=== PATIENT | female | born 1950 | race Caucasian/White ===

== ENCOUNTER → 2019-04-27 07:39 | Outpatient (CLI) | payer MEDICARE, OTHER, SELFPAY ==
[2019-04-27 08:35] LABS: Alanine Aminotransferase 21 IU/L (9-52); Albumin 4.2 g/dL (3.5-5.0); Albumin Globulin Ratio 1.3 (1.0-2.8); Alkaline Phosphatase 66 U/L (38-126); Aspartate Aminotransferase 25 IU/L (14-36); BUN Creatinine Ratio 18.8 (6-22); Bilirubin Total 0.6 mg/dL (0.2-1.3); Blood Urea Nitrogen 15 mg/dL (7-17); Carbon Dioxide 28 mmol/L (22-32); Chloride 105 mmol/L (98-107); Cholesterol 243 mg/dL (140-199); Estimated Glomerular Filt Rate > 60.0 mL/min (>60); Globulin 3.3 g/dL (1.7-4.1); Glucose 101 mg/dL (80-110); HDL Cholesterol 68 mg/dL (40-60); HEMOLYSIS 16 (0-50); LDL Cholesterol Calculated 136 mg/dL (<100); Potassium 4.4 mmol/L (3.4-5.1); Sodium 139 mmol/L (137-145); Total Protein 7.5 g/dL (6.3-8.2); Triglycerides 195 mg/dL (35-150)
[2019-04-27 08:56] LABS: Free T4, Direct Thyroxine 1.26 ng/dL (0.78-2.19)
[2019-04-27 09:10] LABS: Thyroid Stimulating Hormone 2.42 uIU/mL (0.47-4.68)
== END ==
PROVIDERS: PCP Internal Medicine; Visit Provider Internal Medicine
DX: Z13.6 Encounter for screening for cardiovascular disorders (principal); E03.9 Hypothyroidism, unspecified; I10 Essential (primary) hypertension
CPT/HCPCS: 36415; 80053; 80061; 84439; 84443

== ENCOUNTER → 2019-05-08 10:33 | Outpatient (CLI) | payer MEDICARE, OTHER, SELFPAY ==
--- NOTE | 2019-05-08 10:34 | DI.RAD.S_ITS ---
PROCEDURE: FL BARIUM SWALLOW INDICATIONS: dysphagia COMPARISON: None. FINDINGS: Function: There is decreased esophageal peristalsis. Spontaneous gastroesophageal reflux. Morphology: Air-contrast images demonstrate diffuse mucosal irregularity and feline appearance, presumably reflux related. Single contrast views show no esophageal strictures, extrinsic mass effects, or diverticula. Limited images of the stomach demonstrate normal appearance. IMPRESSION: Severe esophageal dysmotility. Spontaneous gastro-esophageal reflux to the lower third of the esophagus. Dictated by: Arturo Fox M.D. on 05/08/2019 at 11:13 Approved by: Arturo Fox M.D. on 05/08/2019 at 11:15
== END ==
PROVIDERS: PCP Internal Medicine; Visit Provider Internal Medicine
DX: R13.10 Dysphagia, unspecified (principal); K21.9 Gastro-esophageal reflux disease without esophagitis; K22.4 Dyskinesia of esophagus
CPT/HCPCS: 74220

== ENCOUNTER → 2019-05-26 12:29 | Outpatient (CLI) | payer MEDICARE, OTHER, SELFPAY ==
--- NOTE | 2019-05-26 | DI.MRI.S_ITS ---
PROCEDURE: MR SHOULDER RT WO CON INDICATIONS: Calcific tendinitis of right shoulder TECHNIQUE: Noncontrast oblique coronal T2 fast spin echo with fat saturation, oblique sagittal T1 spin echo and T2 fast spin echo with fat saturation, axial T1 spin echo and T2 fast spin echo with fat saturation through the shoulder. COMPARISON: None. FINDINGS: Image quality: Diagnostic. Rotator cuff: No definite full-thickness tear of the rotator cuff is evident. There are globular areas of decreased signal intensity identified on all imaging sequences along the distal margin of the supraspinatus tendon. This does result in difficulty evaluating the tendon insertion for subtle abnormalities. There is thickening and increased signal involving the supraspinatus tendon with probable areas of low grade bursal surface partial thickness tearing. The infraspinatus tendon demonstrates mild tendinopathy. The subscapularis and teres minor tendons are within normal limits. There is no significant atrophy of the rotator cuff muscles. Bones and bursae: No acute fracture or suspicious osseous lesion is identified. There mild degenerative changes of the glenohumeral joint. Moderate degenerative changes of the acromioclavicular joint are present. No significant glenohumeral joint effusion is identified. There is a small to moderate amount of fluid contained within the subacromial subdeltoid bursa. Capsule and soft tissues: Evaluation of the labrum and the glenohumeral ligaments is suboptimal without intra-articular contrast. No definite large labral tears are evident. There is slight increased signal along the labral cartilaginous junction of the posterosuperior labrum without a discrete tear evident. No acute injuries are suspected involving the glenohumeral ligaments. The long head of the biceps tendon is not well-seen on this examination, but appears to be intact. IMPRESSION: 1. There is at least low-grade partial-thickness tearing and moderate tendinopathy of the distal supraspinatus tendon with corresponding calcific tendinitis. Please note that in the setting of calcific tendinitis, the degree of partial thickness tearing may be underestimated on MRI. 2. Mild infraspinatus tendinopathy. 3. Mild to moderate degenerative changes of the shoulder joints as described. 4. Questionable small posterosuperior labral tear. Dictated by: Tristin Berman M.D. on 05/26/2019 at 13:30 Approved by: Tristin Berman M.D. on 05/26/2019 at 13:33
== END ==
PROVIDERS: PCP Internal Medicine; Visit Provider Orthopaedic Surgery
DX: M75.31 Calcific tendinitis of right shoulder (principal); M75.111 Incomplete rotator cuff tear or rupture of right shoulder, not specified as traumatic
CPT/HCPCS: 73221

== ENCOUNTER → 2019-09-15 08:09 | Outpatient (CLI) | payer MEDICARE, OTHER, SELFPAY | PROVIDERS: PCP Internal Medicine; Referring Provider Internal Medicine; Visit Provider Internal Medicine | DX: K52.1 Toxic gastroenteritis and colitis (principal); R19.7 Diarrhea, unspecified; T36.95XA Adverse effect of unspecified systemic antibiotic, initial encounter | CPT/HCPCS: 36415; 87493 ==

== ENCOUNTER → 2019-10-27 07:58 | Outpatient (CLI) | payer MEDICARE, OTHER, SELFPAY ==
[2019-10-27 09:53] LABS: Alanine Aminotransferase 15 IU/L (<35); Albumin Globulin Ratio 1.3 (1.0-2.8); Alkaline Phosphatase 55 U/L (38-126); Aspartate Aminotransferase 22 IU/L (14-36); BUN Creatinine Ratio 15.8 (6-22); Bilirubin Total 0.4 mg/dL (0.2-1.3); Blood Urea Nitrogen 15 mg/dL (7-17); Calcium 9.3 mg/dL (8.4-10.2); Carbon Dioxide 26 mmol/L (22-32); Chloride 107 mmol/L (98-107); Cholesterol 231 mg/dL (140-199); Estimated Glomerular Filt Rate 58.7 mL/min (>60); Glucose 99 mg/dL (80-110); HDL Cholesterol 56 mg/dL (40-60); HEMOLYSIS < 15 (0-50); LDL Cholesterol Calculated 135 mg/dL (<100); Potassium 4.6 mmol/L (3.4-5.1); Sodium 140 mmol/L (137-145); Triglycerides 201 mg/dL (35-150)
== END ==
PROVIDERS: PCP Internal Medicine; Referring Provider Internal Medicine; Visit Provider Internal Medicine
DX: E78.5 Hyperlipidemia, unspecified (principal)
CPT/HCPCS: 36415; 80053; 80061

== ENCOUNTER → 2020-01-18 08:11 | Outpatient (CLI) | payer MEDICARE, OTHER, SELFPAY ==
[2020-01-18 09:37] LABS: Alanine Aminotransferase 19 IU/L (<35); Albumin 4.1 g/dL (3.5-5.0); Albumin Globulin Ratio 1.4 (1.0-2.8); Alkaline Phosphatase 64 U/L (38-126); Aspartate Aminotransferase 25 IU/L (14-36); BUN Creatinine Ratio 21.5 (6-22); Bilirubin Total 0.6 mg/dL (0.2-1.3); Blood Urea Nitrogen 20 mg/dL (7-17); Calcium 9.4 mg/dL (8.4-10.2); Carbon Dioxide 24 mmol/L (22-32); Chloride 107 mmol/L (98-107); Cholesterol 157 mg/dL (140-199); Estimated Glomerular Filt Rate > 60.0 mL/min (>60); Glucose 104 mg/dL (80-110); HDL Cholesterol 59 mg/dL (40-60); HEMOLYSIS < 15 (0-50); LDL Cholesterol Calculated 65 mg/dL (<100); Potassium 4.6 mmol/L (3.4-5.1); Sodium 139 mmol/L (137-145); Total Protein 7.1 g/dL (6.3-8.2); Triglycerides 165 mg/dL (35-150)
[2020-01-18 09:49] LABS: Free T4, Direct Thyroxine 1.29 ng/dL (0.78-2.19)
[2020-01-18 10:03] LABS: Thyroid Stimulating Hormone 1.81 uIU/mL (0.47-4.68)
== END ==
PROVIDERS: PCP Internal Medicine; Referring Provider Internal Medicine; Visit Provider Internal Medicine
DX: E03.9 Hypothyroidism, unspecified (principal); E78.5 Hyperlipidemia, unspecified; I10 Essential (primary) hypertension
CPT/HCPCS: 36415; 80053; 80061; 84439; 84443

== ENCOUNTER → 2020-02-09 14:28 | Outpatient (CLI) | payer MEDICARE, OTHER, SELFPAY | PROVIDERS: PCP Internal Medicine; Referring Provider Internal Medicine; Visit Provider Internal Medicine | DX: B34.9 Viral infection, unspecified (principal) | CPT/HCPCS: 36415; 86769 ==

== ENCOUNTER → 2021-01-23 07:08 | Outpatient (CLI) | payer MEDICARE, OTHER, SELFPAY ==
[2021-01-23 08:32] LABS: Alanine Aminotransferase 29 IU/L (<35); Albumin 3.9 g/dL (3.5-5.0); Albumin Globulin Ratio 1.3 (1.0-2.8); Alkaline Phosphatase 55 U/L (38-126); Aspartate Aminotransferase 32 IU/L (14-36); Bilirubin Total 0.4 mg/dL (0.2-1.3); Blood Urea Nitrogen 18 mg/dL (7-17); Calcium 9.2 mg/dL (8.4-10.2); Carbon Dioxide 28 mmol/L (22-32); Chloride 108 mmol/L (98-107); Cholesterol 162 mg/dL (140-199); Estimated Glomerular Filt Rate 55.1 mL/min (>60); Globulin 3.1 g/dL (1.7-4.1); Glucose 104 mg/dL (80-110); HDL Cholesterol 63 mg/dL (40-60); HEMOLYSIS < 15 (0-50); LDL Cholesterol Calculated 68 mg/dL (<100); Potassium 4.7 mmol/L (3.4-5.1); Sodium 141 mmol/L (137-145); Triglycerides 153 mg/dL (35-150)
[2021-01-23 09:04] LABS: TSH w/ Reflex to FT4 2.68 uIU/mL (0.47-4.68)
== END ==
PROVIDERS: PCP Internal Medicine; Referring Provider Internal Medicine; Visit Provider Internal Medicine
DX: E03.9 Hypothyroidism, unspecified (principal); I10 Essential (primary) hypertension; E78.2 Mixed hyperlipidemia
CPT/HCPCS: 36415; 80053; 80061; 84443

== ENCOUNTER 2022-01-30 16:05 | Emergency (ER) | payer MEDICARE, OTHER, SELFPAY ==
[2022-01-30] VITALS (7 sets, daily range): BP systolic 142–217; BP diastolic 79–98; PULSE 60–71; RESP 12–23; TEMP 36.6; O2SAT 96–100
--- NOTE | 2022-01-30 19:55 | ED_ITS ---
HPI - Extremity Problem General Chief complaint: Extremity Problem,Nontraumatic Stated complaint: RIGHT LEG PAIN SWELLING WARM TO TOUCH Time Seen by Provider: 01/30/22 19:18 Source: patient Mode of arrival: Ambulatory History of Present Illness HPI Narrative: 71-year-old female nonsmoker with history of hyperlipidemia, irritable bowel syndrome and hypertension presents with a chief complaint of some pain on her right medial calf and a palpable tender lump that feels warm. She denies any injury. She denies any history of blood clot, recent travel or known cancer. She denies any chest pain or shortness of breath. She states her pain is worse with palpation. She states it improves with rest. She denies systemic complaints such as fever, chills nor nausea or vomiting Related Data Home Medications Medication Instructions Recorded Confirmed Diphenhydramine Hydrochloride 25 mg PO PRN ##0 05/15/11 02/02/21 (BENADRYL) PEG-400/Propylene Glycol (#SYSTANE 5 ml OP PRN ##0 05/15/11 02/02/21 0.4%-0.3%) ibuprofen 200 mg tablet 200 mg PO Q4-6H PRN 01/14/18 02/02/21 [id number] 3.5 otic (ear) BID PRN 11/05/18 02/02/21 mg-10,000 unit/mL-1 % ear drops,susp Previous Rx's Medication Instructions Recorded hyoscyamine sulfate 0.125 mg 0.125 mg sublingual Q4HP PRN #30 08/15/17 disintegrating tablet tabs loratadine-pseudoephedrine ER 10 1 tab PO QDAY #90 tabs 10/02/19 mg-240 mg tablet,extended [id number] (Claritin-D 24 Hour) albuterol sulfate 90 mcg/actuation 2 puff inhalation QID PRN 10/12/19 aerosol inhaler shortness of breath or wheezing #18 grams atenolol 50 mg tablet 50 mg PO BID #180 tabs 02/02/21 lisinopril 20 mg tablet 20 mg PO DAILY #90 tabs 10/23/21 nirmatrelvir 300 mg (150 mg x See Rx Instructions PO .COMPLEX 12/01/21 2)-ritonavir 100 mg tablet (EUA) #30 tabs (Paxlovid 300 mg () levothyroxine 88 mcg tablet 88 mcg PO QAM #90 tabs 01/16/22 atorvastatin 10 mg tablet 10 mg PO DAILY #90 tabs 01/29/22 Allergies Allergy/AdvReac Type Severity Reaction Status Date / Time codeine Allergy Mild RASH/HIVES Verified 02/02/21 16:07 azithromycin AdvReac Intermediate RAPID HR Verified 02/02/21 16:07 Sulfa (Sulfonamide AdvReac Mild NAUSEA Verified 02/02/21 16:07 Antibiotics) Review of Systems Review of Systems Narrative: GENERAL: Denies chills, fatigue, malaise, fever, sweats. HEENT: Denies sinus pain, ear pain, sore throat, difficulty swallowing, dizziness. RESPIRATORY: Denies dyspnea, cough, wheezing, hemoptysis, sputum. CARDIOVASCULAR: Denies chest pain, palpitations, orthopnea, edema, GASTROINTESTINAL: Denies nausea, vomiting, abdominal pain, diarrhea, constipation, melena. : Denies dysuria, frequency, incontinence, hematuria, urinary retention. MUSCULOSKELETAL: See HPI SKIN: Denies rash, skin lesions, or other NEUROLOGIC: Denies weakness, headache, numbness, change in speech, confusion, seizures, incoordination. PSYCHIATRIC: No concerning psychosocial issues. 12 point review of systems is negative except for those stated above Patient History Medical History Acquired hypothyroidism (05/04/11) Anemia (1965) Chronic cough (2002) CTS (carpal tunnel syndrome) (~1999) Essential hypertension (05/04/11) Fractures (1974) Hayfever History of live (1971) History of live (1974) Irritable bowel syndrome with both constipation and diarrhea (1996) Mixed hyperlipidemia Mumps (1963) Recurrent sinusitis Rosacea (2000) Scarlet fever (~1956) Shoulder pain (~1999) Thyroid nodule Surgical History Anesthesia complication Dental root implant present (1998) History of carpal tunnel repair (2002) History of nasal surgery History of surgery on arm (2002) History of thyroidectomy Status post colonoscopy (2001) Status post dilation and curettage Status post left foot surgery Status post tonsillectomy and adenoidectomy (1956) Status post tubal ligation (1980) Family History Brother Age: 66 Fam hx-ischem heart disease Father Family hx of lung cancer Family history of prostate cancer Family history of melanoma Mother Family history of breast cancer Brain cancer Family/Other Family history of breast cancer Social History marital status: number of children: 2 household members: spouse lives independently: Yes caregiver/support person: No housing: house pets and animals: No education level: college (2 years of college.) occupational status: other (Retired) Previous occupational history: Healthcare Bilingual Secretary. blayne/christianity: [employer]ism travel history: recent ([place]) leisure activities: reading and other (Photography, geneology) Smoking Status: Never smoker Tobacco: How many years used: 0 quit status: quit date established (Never Started) second hand exposure: No alcohol intake: current (16oz of week of Wine.) substance use type: does not use Smoking Status: Never smoker Exam Narrative Exam Narrative: GEN: AOx3 and in mild distress EYES: Pupils are equal, round, and reactive to light and accommodation. Extraoccular muscles are intact bilaterally. There is no subconjunctival hemorrhage or exudate. CHEST: Lungs are clear to auscultation bilaterally and free of wheezes, rales, or rhonchi. Heart rate is regular rhythm, there are no murmurs, clicks, rubs, or gallops. There is no chest wall tenderness. ABD: Abdomen is soft and nontender. There is no guarding or rebound. Bowel sounds are normal in all 4 quadrants. There is no mass or organomegaly. EXT: Palpable, rope-like structure, a few cm on right medial calf consistent with thrombosed varicosity, it is slightly warm to the touch but there is no erythema or swelling, no popliteal pain and no medial thigh pain.. SKIN: Warm, pink, and dry. No erythema or rash Initial Vital Signs Initial Vital Signs: Vital Signs Temperature 97.9 F 01/30/22 16:09 Pulse Rate 71 01/30/22 16:09 Respiratory Rate 20 01/30/22 16:09 Blood Pressure 217/98 H 01/30/22 16:09 Pulse Oximetry 99 01/30/22 16:09 Oxygen Delivery Method 01/30/22 16:09 Course Orders Ordered: ED Orders 01/30/22 20:01 US periph venous low extrem rt Stat Vital Signs Vital signs: Vital Signs - 8 hr 01/30/22 20:08 01/30/22 20:09 01/30/22 20:09 Pulse Rate 64 61 Respiratory Rate 23 19 Blood Pressure 142/79 H Pulse Oximetry 99 100 01/30/22 20:30 01/30/22 20:31 01/30/22 20:31 Pulse Rate 60 62 Respiratory Rate 12 19 Blood Pressure 174/79 H Pulse Oximetry 98 96 01/30/22 21:00 01/30/22 21:01 01/30/22 21:01 Pulse Rate 61 61 Respiratory Rate 17 17 Blood Pressure 189/83 H Pulse Oximetry 97 96 MDM - Extremity (Nontraumatic) Imaging Data US - DVT: Radiologist's Impression: Close Vascular Ultrasound (Signed) Rory Santacruz - 01/30/22 Mammogram Result 01/01/22 DI Result 12/29/20 DI Result 12/23/19 Shoulder MRI (Signed) Tristin Berman - 05/26/19 Barium Swallow X-Ray (Signed) Arturo Fox - 05/08/19 DI Result 08/29/18 Launch?[place] [address] Ultrasound Report Signed Patient: Sonia Carranza MR#: [id number] : 1950 Acct:[id number] Age/Sex: 71 / F Date of Service: 01/30/22 Loc: ED Accession Number: [id number] ?? Procedure: US periph venous low extrem rt Ordering Provider: Geovani Childs D.O. PROCEDURE:? US PERIPH VENOUS LOW EXTREM RT ? INDICATIONS:? EDEMA; VARICOSITIES ? TECHNIQUE:? Real-time imaging, as well as color and pulse Doppler interrogation, were performed of the lower extremity deep veins from the inguinal ligament to the popliteal fossa.? ? COMPARISON:? None. ? FINDINGS:? The common femoral, femoral and popliteal veins are normally compressible, and free of intraluminal thrombus.? Color and pulse Doppler demonstrate normal phasic intraluminal flow.? There is normal augmentation response to distal compression maneuver. ? ? There are superficial varicose veins within the lower leg which appear patent and compressible. ? IMPRESSION:? ? 1. No evidence of deep venous thrombosis in the right lower extremity. ? 2. Superficial varicose veins in the lower leg which appear patent. ? ? Dictated by: Rory Santacruz M.D. on 01/30/2022 at 22:10 ? ? Approved by: Rory Santacruz M.D. on 01/30/2022 at 22:12 ? MDM Narrative Medical decision making narrative: Multiple etiologies for patient's symptoms considered including: [DVT versus thrombosed varicosity versus cellulitis versus other] Cellulitis thought unlikely given lack of erythema or systemic findings. DVT thought unlikely given lack of findings on ultrasound, furthermore ultrasound demonstrates no obvious thrombosed varicosity. Findings and discharge diagnosis discussed with patient/family followed by verbalization of understanding Return precautions discussed with patient/family whom verbalize understanding. Discharge Plan Departure Patient Disposition: Home Clinical Impression: Acute leg pain Instructions: DI for Leg Pain Activity Restrictions/Additional Instructions: *You have been diagnosed with [right leg pain, with very reassuring history, physical exam and ultrasound which demonstrates no evidence of deep clot ] *What to do: *Please continue to take your regular medications as directed. [ ] New medication prescriptions sent to your pharmacy: [ ] [ ] New medication written as a paper prescription [ x] No new medications given *Please follow up with your primary care provider in 2-3 days, call for an appointment. Let them know you were seen in the Emergency Department and that we ask that you be seen in follow up. We will electronically transmit a record of today's note if your PCP is in our system *If you do not have a primary care provider please contact the [facility] Resource line at [phone]. They will ask some questions about your medical history and help get you set up with a doctor in the community. *Return to Emergency Department if you should have any new, worsening or concerning symptoms, such as [fever greater than 101 F, shaking chills, worsening pain, persistent vomiting or other bothersome symptoms] Prescriptions: No Action Diphenhydramine Hydrochloride (BENADRYL) 25 mg PO PRN Qty: 0 PEG-400/Propylene Glycol (#SYSTANE 0.4%-0.3%) 5 ml OP PRN Qty: 0 hyoscyamine sulfate 0.125 MG tablet,disintegrating 0.125 mg Sublingual Q4HP PRNQty: 30 3RF loratadine-pseudoephedrine [Claritin-D 24 Hour] 10-240 mg tablet extended release 24 hr 1 tab PO QDAY Qty: 90 3RF albuterol sulfate 90 mcg/actuation HFA aerosol inhaler 2 puff INHALATION QID PRN (Reason: shortness of breath or wheezing) Qty: 18 3RF lisinopril 20 mg tablet 20 mg PO DAILY Qty: 90 0RF Paxlovid (EUA) 150 mg x 2- 100 mg tablet See Rx Instructions PO .COMPLEX Qty: 30 0RF Rx Instructions: take TWO 150 mg tablets of nirmatrelvir with ONE 100 mg tablet of ritonavir twice daily for 5 days PO levothyroxine 88 mcg tablet 88 mcg PO QAM Qty: 90 3RF atorvastatin 10 mg tablet 10 mg PO DAILY Qty: 90 0RF ibuprofen 200 mg tablet 200 mg PO Q4-6H PRN tsomaesa-lsmpmgcer-LI 3.5-10,000-1 mg/mL-unit/mL-% drops,suspension otic (ear) BID PRN atenolol 50 mg tablet 50 mg PO BID Qty: 180 3RF Referrals: Tal Blair MD [Primary Care Provider] - Visit Report Forms: Patient Portal/API
--- NOTE | 2022-01-30 20:01 | DI.US.S_ITS ---
PROCEDURE: US PERIPH VENOUS LOW EXTREM RT INDICATIONS: EDEMA; VARICOSITIES TECHNIQUE: Real-time imaging, as well as color and pulse Doppler interrogation, were performed of the lower extremity deep veins from the inguinal ligament to the popliteal fossa. COMPARISON: None. FINDINGS: The common femoral, femoral and popliteal veins are normally compressible, and free of intraluminal thrombus. Color and pulse Doppler demonstrate normal phasic intraluminal flow. There is normal augmentation response to distal compression maneuver. There are superficial varicose veins within the lower leg which appear patent and compressible. IMPRESSION: 1. No evidence of deep venous thrombosis in the right lower extremity. 2. Superficial varicose veins in the lower leg which appear patent. Dictated by: Rory Santacruz M.D. on 01/30/2022 at 22:10 Approved by: Rory Santacruz M.D. on 01/30/2022 at 22:12
== END 2022-01-30 22:32 | disposition home or self-care (01) ==
PROVIDERS: Emergency Provider Emergency Medicine; PCP Internal Medicine
DX: M79.604 Pain in right leg (principal)
CPT/HCPCS: 93971; 99281; 99283

== ENCOUNTER → 2022-03-16 07:49 | Outpatient (CLI) | payer MEDICARE, OTHER, SELFPAY ==
[2022-03-16 11:04] LABS: Alanine Aminotransferase 16 IU/L (<35); Albumin Globulin Ratio 1.3 (1.0-2.8); Alkaline Phosphatase 58 U/L (38-126); Aspartate Aminotransferase 22 IU/L (14-36); BUN Creatinine Ratio 19.6 (6-22); Bilirubin Total 0.6 mg/dL (0.2-1.3); Blood Urea Nitrogen 19 mg/dL (7-17); Calcium 8.9 mg/dL (8.4-10.2); Carbon Dioxide 29 mmol/L (22-32); Chloride 105 mmol/L (98-107); Cholesterol 165 mg/dL (140-199); Estimated Glomerular Filt Rate > 60 mL/min (>60); Glucose 93 mg/dL (80-110); HDL Cholesterol 72 mg/dL (40-60); HEMOLYSIS < 15 (0-50); LDL Cholesterol Calculated 63 mg/dL (<100); Potassium 4.3 mmol/L (3.4-5.1); Sodium 141 mmol/L (137-145); Triglycerides 150 mg/dL (35-150)
[2022-03-16 11:19] LABS: Free T4, Direct Thyroxine 1.29 ng/dL (0.78-2.19)
[2022-03-16 11:33] LABS: Thyroid Stimulating Hormone 1.62 uIU/mL (0.47-4.68)
== END ==
PROVIDERS: PCP Internal Medicine; Referring Provider Internal Medicine; Visit Provider Internal Medicine
DX: I10 Essential (primary) hypertension (principal); E03.9 Hypothyroidism, unspecified; E78.2 Mixed hyperlipidemia
CPT/HCPCS: 36415; 80053; 80061; 84439; 84443

== ENCOUNTER → 2023-05-08 07:29 | Outpatient (CLI) | payer MEDICARE, OTHER, SELFPAY ==
[2023-05-08 08:44] LABS: Alanine Aminotransferase 21 IU/L (<35); Albumin Globulin Ratio 1.4 (1.0-2.8); Alkaline Phosphatase 53 U/L (38-126); Aspartate Aminotransferase 22 IU/L (14-36); BUN Creatinine Ratio 25.3 (6-22); Bilirubin Total 0.5 mg/dL (0.2-1.3); Blood Urea Nitrogen 22 mg/dL (7-17); Calcium 9.2 mg/dL (8.4-10.2); Carbon Dioxide 25 mmol/L (22-32); Chloride 106 mmol/L (98-107); Cholesterol 154 mg/dL (140-199); Estimated Glomerular Filt Rate > 60 mL/min (>60); Globulin 2.8 g/dL (1.7-4.1); Glucose 98 mg/dL (80-110); HDL Cholesterol 69 mg/dL (40-60); HEMOLYSIS < 15 (0-50); LDL Cholesterol Calculated 48 mg/dL (<100); Potassium 4.5 mmol/L (3.4-5.1); Sodium 139 mmol/L (137-145); Total Protein 6.8 g/dL (6.3-8.2); Triglycerides 187 mg/dL (35-150)
[2023-05-08 08:59] LABS: Free T4, Direct Thyroxine 1.18 ng/dL (0.78-2.19)
[2023-05-08 09:12] LABS: Thyroid Stimulating Hormone 3.93 uIU/mL (0.47-4.68)
== END ==
PROVIDERS: PCP Internal Medicine; Referring Provider Internal Medicine; Visit Provider Internal Medicine
DX: I10 Essential (primary) hypertension (principal); E78.2 Mixed hyperlipidemia; E03.9 Hypothyroidism, unspecified
CPT/HCPCS: 36415; 80053; 80061; 84439; 84443

== ENCOUNTER → 2024-06-08 10:08 | Outpatient (CLI) | payer MEDICARE, OTHER, SELFPAY ==
--- NOTE | 2024-06-08 10:10 | DI.RAD.S_ITS ---
PROCEDURE: XR HIP W PEL IF DONE AUGUSTA MIN 4V INDICATIONS: hip pain TECHNIQUE: AP pelvis with lateral view(s) of the both hip(s). COMPARISON: None. FINDINGS: Bones: CAM configuration both femoral head neck junctions predispose to femoral acetabular impingement and labral tears. SI and hip joints: Normal in width and alignment without arthritic change. Moderate L5-S1 degenerative disc disease noted. Soft tissues: No soft tissue swelling, calcification or mass. IMPRESSION: Chronic findings -as described Dictated by: Tal Amaya M.D. on 06/09/2024 at 9:17 Approved by: Tal Amaya M.D. on 06/09/2024 at 9:18
== END ==
LOC: RAD 10:10
PROVIDERS: PCP Internal Medicine; Referring Provider Internal Medicine; Visit Provider Internal Medicine
DX: M51.379 Other intervertebral disc degeneration, lumbosacral region without mention of lumbar back pain or lower extremity pain (principal); M25.559 Pain in unspecified hip
CPT/HCPCS: 73522

== ENCOUNTER → 2024-06-10 07:09 | Outpatient (CLI) | payer MEDICARE, OTHER, SELFPAY ==
[2024-06-10 08:07] LABS: Add Manual Diff / Slide Review NO; Basophils Absolute Auto 0 /uL (0-100); Basophils Percent Auto 0.5 % (0-2); Eosinophils Absolute Auto 300 /uL (0-450); Eosinophils Percent Auto 4.4 % (2-4); Hemoglobin 12.6 g/dL (12.0-16.0); Lymphocytes Absolute Auto 1500 /uL (1100-4500); Lymphocytes Percent Auto 23.7 % (25-40); Mean Corpuscular HGB Conc 33.3 % (30-36); Mean Corpuscular Hemoglobin 31.7 PG (26-34); Mean Corpuscular Volume 95.1 fL (80-100); Monocytes Absolute Auto 300 /uL (0-900); Monocytes Percent Auto 5.3 % (3-14); Neutrophils Absolute Auto 4200 /uL (1500-7000); Neutrophils Percent Auto 66.1 % (50-75); Platelet Count 211 X10^3/uL (150-400); Red Blood Cell Count 3.99 X10^6/uL (4.0-5.2); Red Cell Distribution Width 13.8 % (11.6-14.8); White Blood Cell Count 6.3 X10^3/uL (4.5-11.0)
[2024-06-10 08:31] LABS: Alanine Aminotransferase 24 IU/L (<35); Albumin 4.1 g/dL (3.5-5.0); Albumin Globulin Ratio 1.4 (1.0-2.8); Alkaline Phosphatase 36 U/L (38-126); Aspartate Aminotransferase 41 IU/L (14-36); BUN Creatinine Ratio 24.1 (6-22); Bilirubin Total 0.8 mg/dL (0.2-1.3); Blood Urea Nitrogen 21 mg/dL (7-17); C-Reactive Protein Quant 0.5 mg/dL (<1.0); Calcium 9.2 mg/dL (8.4-10.2); Carbon Dioxide 23 mmol/L (22-32); Chloride 109 mmol/L (98-107); Cholesterol 172 mg/dL (140-199); Creatine Kinase 52 U/L (30-135); Estimated Glomerular Filt Rate > 60 mL/min (>60); Globulin 2.9 g/dL (1.7-4.1); Glucose 103 mg/dL (80-110); HDL Cholesterol 63 mg/dL (40-60); LDL Cholesterol Calculated 72 mg/dL (<100); Magnesium 1.8 mg/dL (1.6-2.3); Sodium 139 mmol/L (137-145); Triglycerides 183 mg/dL (35-150)
[2024-06-10 08:32] LABS: HEMOLYSIS 134 (0-50); Potassium 5.4 mmol/L (3.4-5.1)
[2024-06-10 08:44] LABS: Free T4, Direct Thyroxine 1.02 ng/dL (0.78-2.19)
[2024-06-10 08:58] LABS: Thyroid Stimulating Hormone 1.64 uIU/mL (0.47-4.68)
[2024-06-10 09:26] LABS: Erythrocyte Sedimentation Rate 19 MM/HR (0-20)
== END ==
PROVIDERS: PCP Internal Medicine; Referring Provider Internal Medicine; Visit Provider Internal Medicine
DX: I10 Essential (primary) hypertension (principal); E78.2 Mixed hyperlipidemia; E03.9 Hypothyroidism, unspecified; D64.9 Anemia, unspecified; M25.50 Pain in unspecified joint; R25.2 Cramp and spasm
CPT/HCPCS: 36415; 80053; 80061; 82550; 83735; 84439; 84443; 85025; 85651; 86140

== ENCOUNTER → 2024-06-22 14:34 | Outpatient (CLI) | payer MEDICARE, OTHER, SELFPAY | PROVIDERS: PCP Internal Medicine; Visit Provider Urology | DX: K58.2 Mixed irritable bowel syndrome (principal); R31.29 Other microscopic hematuria; N31.8 Other neuromuscular dysfunction of bladder; N39.41 Urge incontinence; R82.81 Pyuria; R30.0 Dysuria; R39.9 Unspecified symptoms and signs involving the genitourinary system; Z77.22 Contact with and (suspected) exposure to environmental tobacco smoke (acute) (chronic) | CPT/HCPCS: 51798; 81002; 87086; 99214 ==

== ENCOUNTER → 2024-07-06 10:13 | Outpatient (CLI) | payer MEDICARE, OTHER, SELFPAY | PROVIDERS: PCP Internal Medicine; Visit Provider Urology | DX: R39.9 Unspecified symptoms and signs involving the genitourinary system (principal) | CPT/HCPCS: 87086 ==

== ENCOUNTER → 2024-07-17 15:36 | Outpatient (CLI) | payer MEDICARE, OTHER, SELFPAY | PROVIDERS: PCP Internal Medicine; Visit Provider Urology | DX: R39.9 Unspecified symptoms and signs involving the genitourinary system (principal); R30.0 Dysuria | CPT/HCPCS: 87086 ==

== ENCOUNTER → 2024-07-23 15:48 | Outpatient (CLI) | payer MEDICARE, OTHER, SELFPAY ==
[2024-07-23 16:51] LABS: Alanine Aminotransferase 24 IU/L (<35); Albumin 4.2 g/dL (3.5-5.0); Albumin Globulin Ratio 1.6 (1.0-2.8); Alkaline Phosphatase 54 U/L (38-126); Aspartate Aminotransferase 28 IU/L (14-36); BUN Creatinine Ratio 27.8 (6-22); Bilirubin Total 0.5 mg/dL (0.2-1.3); Bilirubin Unconjugated 0.3 mg/dL (0.0-1.1); Blood Urea Nitrogen 27 mg/dL (7-17); Calcium 9.4 mg/dL (8.4-10.2); Carbon Dioxide 26 mmol/L (22-32); Chloride 107 mmol/L (98-107); Estimated Glomerular Filt Rate > 60 mL/min (>60); Globulin 2.7 g/dL (1.7-4.1); Glucose 95 mg/dL (80-110); HEMOLYSIS 36 (0-50); Potassium 4.7 mmol/L (3.4-5.1); Sodium 140 mmol/L (137-145); Total Protein 6.9 g/dL (6.3-8.2)
[2024-07-23 17:15] LABS: Appearance Urine UA CLEAR; Bilirubin Urine UA NEGATIVE (NEGATIVE); Color Urine UA YELLOW; Glucose Urine UA NEGATIVE (Negative); Ketones Urine UA NEGATIVE (NEGATIVE); Leukocyte Esterase Urine UA NEGATIVE (NEGATIVE); Nitrite Urine UA NEGATIVE (Negative); Occult Blood Urine UA NEGATIVE (Negative); Protein Urine UA NEGATIVE (Negative); Urobilinogen Urine UA 0.2 E.U./dL (0.2)
[2024-07-23 17:23] LABS: pH Urine UA 5.5 (4.5-8.0)
[2024-07-23 17:25] LABS: Bacteria Urine None Seen; Culture Indicated Urine Cult Not Indicated; RBC Urine None Seen (0-5/HPF); Squamous Epithelial Cell Urine 0-1 /HPF (0-5/HPF); Urine Volume 10mL (spun); WBC Urine 0-1/HPF (0-5/HPF)
== END ==
PROVIDERS: PCP Internal Medicine; Referring Provider Internal Medicine; Visit Provider Internal Medicine
DX: R30.0 Dysuria (principal); R74.01 Elevation of levels of liver transaminase levels
CPT/HCPCS: 36415; 80048; 80076; 81001

== ENCOUNTER → 2024-07-24 11:12 | Outpatient (CLI) | payer MEDICARE, OTHER, SELFPAY | PROVIDERS: PCP Internal Medicine; Referring Provider Urology; Visit Provider Urology | DX: N39.41 Urge incontinence (principal); R39.9 Unspecified symptoms and signs involving the genitourinary system | CPT/HCPCS: 87086 ==

== ENCOUNTER → 2025-05-11 08:16 | Outpatient (CLI) | payer MEDICARE, OTHER, SELFPAY ==
[2025-05-11 09:51] LABS: Alanine Aminotransferase 22 IU/L (<35); Albumin 4.2 g/dL (3.5-5.0); Albumin Globulin Ratio 1.4 (1.0-2.8); Alkaline Phosphatase 58 U/L (38-126); Blood Urea Nitrogen 25 mg/dL (7-17); Calcium 9.2 mg/dL (8.4-10.2); Carbon Dioxide 26 mmol/L (22-32); Chloride 105 mmol/L (98-107); Cholesterol 169 mg/dL (140-199); Estimated Glomerular Filt Rate 48 mL/min (>60); Globulin 3.1 g/dL (1.7-4.1); Glucose 110 mg/dL (70-99); HDL Cholesterol 56 mg/dL (40-60); HEMOLYSIS < 15 (0-50); Potassium 4.1 mmol/L (3.4-5.1); Sodium 139 mmol/L (137-145); Total Protein 7.3 g/dL (6.3-8.2); Triglycerides 220 mg/dL (35-150)
[2025-05-11 10:27] LABS: Free T4, Direct Thyroxine 1.21 ng/dL (0.78-2.19)
[2025-05-11 10:41] LABS: Thyroid Stimulating Hormone 2.15 uIU/mL (0.47-4.68)
== END ==
PROVIDERS: PCP Internal Medicine; Referring Provider Internal Medicine; Visit Provider Internal Medicine
DX: I10 Essential (primary) hypertension (principal); E78.2 Mixed hyperlipidemia; E03.9 Hypothyroidism, unspecified
CPT/HCPCS: 36415; 80053; 80061; 84439; 84443

== ENCOUNTER → 2025-06-21 09:18 | Outpatient (CLI) | payer MEDICARE, OTHER, SELFPAY ==
[2025-06-21 10:56] LABS: Blood Urea Nitrogen 26 mg/dL (7-17); Calcium 9.3 mg/dL (8.4-10.2); Carbon Dioxide 25 mmol/L (22-32); Chloride 108 mmol/L (98-107); Estimated Glomerular Filt Rate 59 mL/min (>60); Glucose 109 mg/dL (70-99); HEMOLYSIS < 15 (0-50); Potassium 4.6 mmol/L (3.4-5.1); Sodium 140 mmol/L (137-145)
== END ==
PROVIDERS: Family Provider Internal Medicine; PCP Internal Medicine; Referring Provider Internal Medicine; Visit Provider Internal Medicine
DX: I12.9 Hypertensive chronic kidney disease with stage 1 through stage 4 chronic kidney disease, or unspecified chronic kidney disease (principal); N18.31 Chronic kidney disease, stage 3a
CPT/HCPCS: 36415; 80048

== ENCOUNTER → 2025-07-02 15:24 | Outpatient (CLI) | payer MEDICARE, OTHER, SELFPAY ==
--- NOTE | 2025-07-02 15:26 | DI.RAD.S_ITS ---
PROCEDURE: XR THORACIC SPINE 3V INDICATIONS: thoracic back pain TECHNIQUE: 3 views of the thoracic spine were acquired. COMPARISON: None. FINDINGS: Bones: No fractures or dislocations. No suspicious bony lesions. 12 pairs of ribs are noted, and appear intact where visualized. Bridging lateral osteophytes. Soft tissues: No paravertebral stripe thickening. IMPRESSION: No acute compression deformity. Bridging osteophytes, which can be seen with DISH, a possible cause of back pain. Dictated by: Vu Barry M.D. on 07/02/2025 at 15:49 Approved by: Vu Barry M.D. on 07/02/2025 at 15:52
== END ==
PROVIDERS: PCP Internal Medicine; Referring Provider Internal Medicine; Visit Provider Internal Medicine
DX: M54.6 Pain in thoracic spine (principal); M25.78 Osteophyte, vertebrae
CPT/HCPCS: 72072